=== PATIENT | male | born 1990 | race Two or more races ===

== ENCOUNTER → 2018-06-20 | Outpatient (CLI) | payer BC ==
--- NOTE | 2018-06-20 09:38 | RAD ---
Right upper quadrant abdominal ultrasound, 06/20/2018: HISTORY: Increased liver enzymes The study was somewhat limited due to the patient's body habitus. The gallbladder is within normal limits in size. There is no sonographic evidence of cholelithiasis. The gallbladder wall is not thickened. The common hepatic duct is of normal caliber. No hepatic mass is seen. The hepatic echogenicity appears to be mildly increased in diffuse pattern. This is most commonly due to fatty change. The visualized portions of the right kidney are unremarkable. The pancreas was obscured by overlying bowel. IMPRESSION: 1. No gallbladder abnormality is detected. 2. Increased hepatic echogenicity suggesting hepatic steatosis. Electronically signed by: Chadwick Bonilla MD (06/20/2018 9:34 AM) [facility]
== END | disposition home or self-care (01) ==
LOC: US 06:54
PROVIDERS: ATTEND Internal Medicine Gastroenterology
DX: R94.5 Abnormal results of liver function studies (principal)
CPT/HCPCS: 76705